=== PATIENT | female | born 1985 | race American Indian/Alaskan Native ===

== ENCOUNTER 2016-11-26 22:10 | Emergency (ER) | payer MEDICAID ==
[2016-11-26 23:33] LABS: Basophils % (Auto) 0.5 % (0.0-1.8); Eosinophils % (Auto) 0.3 % (0.0-4.3); Hematocrit 36.8 % (30.3-42.9); Hemoglobin 12.2 gm/dl (10.1-14.3); Mean Corpuscular HGB Conc 33 % (30-34); Mean Corpuscular Hemoglobin 30 pg (28-32); Mean Corpuscular Volume 89 fl (79-97); Platelet Count 248 K/mm3 (140-440); Red Blood Count 4.13 M/mm3 (3.65-5.03); Red Cell Distribution Width 14.7 % (13.2-15.2); White Blood Count 8.5 K/mm3 (4.5-11.0)
[2016-11-26 23:50] LABS: Anion Gap 17 mmol/L; Blood Urea Nitrogen 10 mg/dL (7-17); Calcium 9.4 mg/dL (8.4-10.2); Carbon Dioxide 28 mmol/L (22-30); Chloride 102.3 mmol/L (98-107); Glucose 137 mg/dL (65-100); Sodium 143 mmol/L (137-145)
[2016-11-27 05:00] LABS: Urine Drugs of Abuse Note Disclamer
[2016-11-27 05:23] LABS: Bacteria,Urine 1+ /HPF (Negative); Bilirubin,Urine NEG (Negative); Blood,Urine NEG (Negative); Ketones,Urine TR mg/dL (Negative); Leukocyte Esterase,Urine SM (Negative); Mucus,Urine 3+ /HPF; Nitrite,Urine NEG (Negative)
[2016-11-27] MEDS ORDERED: MACROBID PO ONE (05:40)
--- NOTE | 2016-11-27 06:09 | Emergency Department Report ---
ED Psych HPI - General Chief Complaint: Psych Stated Complaint: MH EVAL Time Seen by Provider: 11/27/16 02:39 Source: patient Mode of arrival: Ambulatory Limitations: Other - History of Present Illness Initial Comments: 31-year-old female with a past psychiatric history presents to the hospital by [facility] [employer] for disruptive behavior at [facility]. Patient was talking to herself upon arrival. She is calm and cooperative in the ED denies any physical complaints. No reports of suicidal homicidal ideation. Patient apparently resides at [facility] currently. - Related Data Previous Rx's Medication Instructions Recorded Last Taken Type Nitrofurantoin Don[place]han/M-Cryst 100 mg PO Q12HR #10 capsule 11/27/16 Unknown Rx [Macrobid CAP] Allergies Allergy/AdvReac Type Severity Reaction Status Date / Time No Known Allergies Allergy Unverified 03/24/15 11:21 ED Review of Systems ROS: Stated complaint: MH EVAL Other details as noted in HPI Comment: All other systems reviewed and negative Other: Constitutional: No fevers chills Eyes: No eye pain ENT: No ear pain Neck: Denies pain Respiratory: Denies cough wheezing shortness of breath Cardiovascular: Denies chest pain GI: Denies abdominal pain : Denies dysuria Musculoskeletal: Denies back pain Skin: Denies rash, lesions, erythema Neurologic: Denies headache, numbness, weakness Psychiatric: Denies suicidal ideation ED Past Medical Hx - Past Medical History Previous Medical History?: Yes Hx Psychiatric Treatment: Yes - Surgical History Past Surgical History?: No - Social History Smoking Status: Never Smoker Substance Use Type: None - Medications Home Medications: Home Medications Medication Instructions Recorded Confirmed Last Taken Type Nitrofurantoin Don[place]han/M-Cryst 100 mg PO Q12HR #10 capsule 11/27/16 Unknown Rx [Macrobid CAP] ED Physical Exam - General Limitations: No Limitations - Other Other exam information: General: No limitations, patient is alert in no acute distress Head exam: Atraumatic, normocephalic Eyes exam: Normal appearance ENT: Moist mucous membrane, normal oropharynx Neck exam: Normal inspection, full range of motion Respiratory exam: Clear to auscultation bilateral, no wheezes, rales, crackles Cardiovascular: Normal rate and rhythm, normal heart sounds Abdomen: Soft, nondistended, and nontender, with normal bowel sounds, no rebound, or guarding Extremity: Full range of motion normal inspection no deformity Back: Normal Inspection, full range of motion, no tenderness Neurologic: Alert, cranial nerves intact, no motor or sensory deficit Psychiatric: Normal affect, mumbling speech which appears to be chronic Skin: Warm, dry, intact ED Course Vital Signs 11/26/16 22:29 Temperature 98.0 F Pulse Rate 100 H Respiratory 16 Rate Blood Pressure 124/75 O2 Sat by Pulse 99 Oximetry - Reevaluation(s) Reevaluation #1: 11/27/16 06:09 Patient remained calm and cooperative. Macrobid given - Consultations Consultation #1: 11/27/16 Mental health evaluation ED Medical Decision Making - Lab Data Result diagrams: 11/26/16 23:12 11/26/16 23:12 Lab Results 11/26/16 11/26/16 11/26/16 Range/Units 23:12 23:12 23:12 WBC 8.5 (4.5-11.0) K/mm3 RBC 4.13 (3.65-5.03) M/mm3 Hgb 12.2 (10.1-14.3) gm/dl Hct 36.8 (30.3-42.9) % MCV 89 (79-97) fl MCH 30 (28-32) pg MCHC 33 (30-34) % RDW 14.7 (13.2-15.2) % Plt Count 248 (140-440) K/mm3 Lymph % (Auto) 30.6 (13.4-35.0) % Doniphan % (Auto) 14.0 H (0.0-7.3) % Eos % (Auto) 0.3 (0.0-4.3) % Baso % (Auto) 0.5 (0.0-1.8) % Lymph # 2.6 (1.2-5.4) K/mm3 Doniphan # 1.2 H (0.0-0.8) K/mm3 Eos # 0.0 (0.0-0.4) K/mm3 Baso # 0.0 (0.0-0.1) K/mm3 Seg Neutrophils % 54.6 (40.0-70.0) % Seg Neutrophils # 4.7 (1.8-7.7) K/mm3 Sodium 143 (137-145) mmol/L Potassium 4.0 (3.6-5.0) mmol/L Chloride 102.3 (98-107) mmol/L Carbon Dioxide 28 (22-30) mmol/L Anion Gap 17 mmol/L BUN 10 (7-17) mg/dL Creatinine 0.8 (0.7-1.2) mg/dL Estimated GFR > 60 ml/min BUN/Creatinine Ratio 12.50 % Glucose 137 H (65-100) mg/dL Calcium 9.4 (8.4-10.2) mg/dL Urine Color (Yellow) Urine Turbidity (Clear) Urine pH (5.0-7.0) Ur Specific Weldon (1.003-1.030) Urine Protein (Negative) mg/dL Urine Glucose (UA) (Negative) mg/dL Urine Ketones (Negative) mg/dL Urine Blood (Negative) Urine Nitrite (Negative) Urine Bilirubin (Negative) Urine Urobilinogen (<2.0) mg/dL Ur Leukocyte Esterase (Negative) Urine WBC (Auto) (0.0-6.0) /HPF Urine RBC (Auto) (0.0-6.0) /HPF U Epithel Cells (Auto) (0-13.0) /HPF Urine Bacteria (Auto) (Negative) /HPF Urine Mucus /HPF Urine HCG, Qual (Negative) Urine Opiates Screen Urine Methadone Screen Ur Barbiturates Screen Ur Phencyclidine Scrn Ur Amphetamines Screen U Benzodiazepines Scrn Urine Cocaine Screen U Marijuana (THC) Screen Drugs of Abuse Note Plasma/Serum Alcohol < 0.01 (0-0.07) gm% 11/27/16 11/27/16 Range/Units 04:51 04:51 WBC (4.5-11.0) K/mm3 RBC (3.65-5.03) M/mm3 Hgb (10.1-14.3) gm/dl Hct (30.3-42.9) % MCV (79-97) fl MCH (28-32) pg MCHC (30-34) % RDW (13.2-15.2) % Plt Count (140-440) K/mm3 Lymph % (Auto) (13.4-35.0) % Doniphan % (Auto) (0.0-7.3) % Eos % (Auto) (0.0-4.3) % Baso % (Auto) (0.0-1.8) % Lymph # (1.2-5.4) K/mm3 Doniphan # (0.0-0.8) K/mm3 Eos # (0.0-0.4) K/mm3 Baso # (0.0-0.1) K/mm3 Seg Neutrophils % (40.0-70.0) % Seg Neutrophils # (1.8-7.7) K/mm3 Sodium (137-145) mmol/L Potassium (3.6-5.0) mmol/L Chloride (98-107) mmol/L Carbon Dioxide (22-30) mmol/L Anion Gap mmol/L BUN (7-17) mg/dL Creatinine (0.7-1.2) mg/dL Estimated GFR ml/min BUN/Creatinine Ratio % Glucose (65-100) mg/dL Calcium (8.4-10.2) mg/dL Urine Color Yellow (Yellow) Urine Turbidity Cloudy (Clear) Urine pH 6.0 (5.0-7.0) Ur Specific Weldon 1.028 (1.003-1.030) Urine Protein 30 mg/dl (Negative) mg/dL Urine Glucose (UA) 50 (Negative) mg/dL Urine Ketones Tr (Negative) mg/dL Urine Blood Neg (Negative) Urine Nitrite Neg (Negative) Urine Bilirubin Neg (Negative) Urine Urobilinogen 2.0 (<2.0) mg/dL Ur Leukocyte Esterase Sm (Negative) Urine WBC (Auto) 13.0 H (0.0-6.0) /HPF Urine RBC (Auto) 2.0 (0.0-6.0) /HPF U Epithel Cells (Auto) 13.0 (0-13.0) /HPF Urine Bacteria (Auto) 1+ (Negative) /HPF Urine Mucus 3+ /HPF Urine HCG, Qual Negative (Negative) Urine Opiates Screen Presumptive negative Urine Methadone Screen Presumptive negative Ur Barbiturates Screen Presumptive negative Ur Phencyclidine Scrn Presumptive negative Ur Amphetamines Screen Presumptive negative U Benzodiazepines Scrn Presumptive negative Urine Cocaine Screen Presumptive negative U Marijuana (THC) Screen Presumptive negative Drugs of Abuse Note Disclamer Plasma/Serum Alcohol (0-0.07) gm% - Medical Decision Making Patient has mild your leukocytosis will be covered Macrobid. Patient does not meet 1013 criteria. She is currently residing at a psychiatric facility she will be discharged back to [facility]. Case was discussed with mental health plastic card grader cardroom. - Differential Diagnosis psychiatric disorder, chronic psychosis, infection Critical Care Time: No Critical care attestation.: If time is entered above; I have spent that time in minutes in the direct care of this critically ill patient, excluding procedure time. ED Disposition Clinical Impression: Mental health disorder, Urine WBC increased Disposition: DISCHARGED TO HOME OR SELFCARE Is pt being admited?: No Does the pt Need Aspirin: No Condition: Stable Instructions: Medical Clearance for Psychiatric Care (ED), Urinary Tract Infection in Women (ED) Prescriptions: Nitrofurantoin Doniphan/M-Cryst [Macrobid CAP] 100 mg PO Q12HR #10 capsule Referrals: PRIMARY CARE, [Primary Care Provider] - 3-5 Days Time of Disposition: 06:16
--- NOTE | 2016-11-27 18:35 | Consultation ---
History of Present Illness - Reason for Consult Consult date: 11/27/16 Reason for consult: Mental Health Evaluation - Chief Complaint Chief complaint: "I went to the store" - History of Present Psychiatric Illness 31-year-old female with a past psychiatric history presents to the hospital by [facility] [employer] for disruptive behavior at [facility]. During assessment, patient had to be redirected and presented with disorganized thoughts. He stated that she was 48 years old and her son is 45. Patient went on to say that she was to a friend name "Rufus." I am not sure if Rufus is a friend or her spouse. She was able to tell me she takes Depokate and Risperdal for Schizoaffective disorder. She was not able to tell me where she was located at the time or the president of the . She denied SI/HI's or AH's at this time. Medications and Allergies Allergies Allergy/AdvReac Type Severity Reaction Status Date / Time No Known Allergies Allergy Unverified 03/24/15 11:21 Home Medications Medication Instructions Recorded Confirmed Last Taken Type Nitrofurantoin Rincon/M-Cryst 100 mg PO Q12HR #10 capsule 11/27/16 Unknown Rx [Macrobid CAP] Past psychiatric history - Past Medical History Past Medical History: other (unable to obtain) Past Surgical History: Other (unable to obtain) - past Psychiatric treatment and history Psych: Bipolar, Schizophrenia (Live in a intermediate) psychiatric treatment history: Unable to obtain Mental Status Exam - Vital signs Last Vital Signs Temp 98.0 F 11/26/16 22:29 Pulse 82 11/27/16 09:43 Resp 16 11/27/16 09:43 BP 145/86 11/27/16 09:43 Pulse Ox 100 11/27/16 09:43 - Exam Narrative exam: ROS (+) Psychosis Orientation: person Affect: flat Mood: congruent with affect Thought content: delusions Thought Process: Tangential, Disoriented Perceptions: none Speech: incoherent Concentration: focused Motor activity: other (Sitting up) Level of consciousness: alert Memory: Recent Intact Sleep Symptoms: None (unable to obtain) Interaction: cooperative Results Result Diagrams: 11/26/16 23:12 11/26/16 23:12 Abnormal lab results 11/26/16 11/26/16 11/27/16 Range/Units 23:12 23:12 04:51 Rincon % (Auto) 14.0 H (0.0-7.3) % Rincon # 1.2 H (0.0-0.8) K/mm3 Glucose 137 H (65-100) mg/dL Urine WBC (Auto) 13.0 H (0.0-6.0) /HPF All other labs normal. Assessment and Plan Assessment and plan: Impression: Hx of Schizoaffective Disorder. Patient is disorganized with tangential thoughts. Recommendation: Possible placement to inpatient psychiatric services or [facility] once mentally stable. Collect collateral information to proper assess current situation. Start depakote 500 mg PO BID mood stabilizer and Risperdal 2 mg PO daily for psychosis. LFT's ordered.
[2016-11-27] MEDS: RisperDAL PO SCH (20:41)
[2016-11-27 20:51] LABS: Alanine Aminotransferase 8 units/L (7-56)
[2016-11-28] MEDS: RisperDAL PO SCH (11:37)
--- NOTE | 2016-11-28 16:11 | Progress Note ---
Subjective - Reason for Consult Consult date: 11/28/16 Reason for consult: psychosis and disorganized behaviors - Chief Complaint Chief complaint: On examination today, the patient continues to have disorganized speech. She continues to be nonlinear and her ability to recount the events that led to the hospitalization. She is unaware of where she is and why she is here at this hospital. She was very poor historian and remains paranoid. Mental Status Exam - Vital signs Last Vital Signs Temp 98.0 F 11/26/16 22:29 Pulse 92 H 11/28/16 01:30 Resp 18 11/28/16 12:28 BP 112/78 11/28/16 01:30 Pulse Ox 96 11/28/16 12:28 - Exam Orientation: time, person Affect: anxious Mood: fearful Thought content: obsessions, paranoia Thought Process: Disorganized Speech: incoherent Concentration: distractible Motor activity: restless Level of consciousness: alert Memory: Recent Impaired, Remote Impaired Sleep Symptoms: Insomnia, Restless Interaction: guarded, uncooperative Assessment and Plan Impression: Schizoaffective disorder Plan: Continue current dose of Depakote and plan on obtaining LFTs as well as amylase/ lipase levels Continue current dose of Risperdal with the plan to titrate further over the next 24 hours if patient's symptoms do not reduce Continue to pursue inpatient hospitalization treatment for this patient
[2016-11-28] MEDS ORDERED: RisperDAL PO SCH (20:00)
[2016-11-29] MEDS: RisperDAL PO SCH (11:14)
--- NOTE | 2016-11-29 14:38 | Progress Note ---
Subjective - Reason for Consult Consult date: 11/29/16 Reason for consult: psychiatry - Chief Complaint Chief complaint: The patient continues to have disorganized speech and is tangential. She is unaware of where she is and why she is here at this hospital. She was very poor historian and remains paranoid. She mentioned recently being at the [employer]. Mental Status Exam - Vital signs Last Vital Signs Temp 98.5 F 11/29/16 10:00 Pulse 100 H 11/29/16 10:00 Resp 18 11/29/16 12:18 BP 117/96 11/29/16 10:00 Pulse Ox 99 11/29/16 10:00 - Exam Orientation: place, person Affect: agitated Mood: congruent with affect Thought content: obsessions, paranoia Thought Process: Tangential, Disorganized Speech: pressured Concentration: unable to pay attention Motor activity: restless Level of consciousness: alert Sleep Symptoms: Sleepiness Interaction: cooperative (attempts to be cooperative but disorganized) Assessment and Plan Impression: Schizoaffective disorder Plan: Continue current dose of Depakote. LFTs done and within normal limits. Increase Risperdal for ongoing psychotic symptoms. She will receive Risperdal 1 mg at bedtime since she has received 2 mg this morning. If she remains in the emergency department tomorrow and has not been transported to an inpatient psychiatric facility, she will receive Risperdal 3 mg at bedtime for psychotic symptoms Continue to pursue inpatient hospitalization treatment for this patient - Patient Problems (1) Schizoaffective disorder Current Visit: Yes Status: Acute Qualifiers: Schizoaffective disorder type: S
[2016-11-29] MEDS ORDERED: RisperDAL PO SCH (22:00)
--- NOTE | 2016-11-30 16:07 | Progress Note ---
Subjective - Reason for Consult Reason for consult: psych consult - Chief Complaint Chief complaint: 31 year old BF with history of scpt presented to [facility] after disorganized behavior in a store. Patient remains disorganized- noting that she wants to leave but can't provide a proper dispo plan. She denies any SI/HI/ AH/VH but was responding to internal stimuli when she didn't seem to notice I was watching her. She notes that she's tolerating the medication and denies issues with sleep or appetite. Remains delusions- for example saying her son is 1 year younger than her. Mental Status Exam - Vital signs Last Vital Signs Temp 97.7 F 11/30/16 07:55 Pulse 94 H 11/30/16 07:55 Resp 16 11/30/16 07:57 BP 130/74 11/30/16 07:55 Pulse Ox 100 11/30/16 07:57 - Exam Orientation: person Affect: normal Mood: appropriate Thought content: delusions Thought Process: Disorganized Perceptions: auditory Speech: normal rate and pattern Concentration: distractible Motor activity: normal Level of consciousness: alert Memory: Intact Interaction: cooperative Assessment and Plan 31 year old BF with history of scpt presented to [facility] after disorganized behavior in a store. Patient condition hasn't changed much while her- her delusions and disorganized behaviors inhibit her from being able to care for self at this time. She still requires an inpt setting and to work on dispo options. psychosis: continue treatment with risperdal while transfer options to inpt care are explored.
[2016-11-30] MEDS: RisperDAL PO SCH (21:34)
--- NOTE | 2016-12-01 09:59 | Progress Note ---
Subjective - Reason for Consult Consult date: 12/01/16 Reason for consult: Psychiatry Follow-up - Chief Complaint Chief complaint: 31 year old BF with history of scpt presented to [facility] after disorganized behavior in a store. Today patient presents delusional with disorganized thoughts. She stated that she's currently at [facility], but did state that she resides at [facility]. She could not elaborate on the incident at [facility] when asked, she just laughed out loud. She denied side effects of current psy medications. She also denies any SI/HI/AH/VH. Mental Status Exam - Vital signs Last Vital Signs Temp 97.9 F 12/01/16 08:08 Pulse 80 12/01/16 08:08 Resp 16 12/01/16 08:09 BP 117/74 12/01/16 08:08 Pulse Ox 100 12/01/16 08:09 - Exam Orientation: person Affect: other (Restricted) Mood: euphoric Thought content: delusions Thought Process: Circumstantial Perceptions: none Speech: slow Concentration: distractible Motor activity: other (Sitting up in bed) Level of consciousness: alert Memory: Remote Impaired Interaction: cooperative Assessment and Plan Impression: 31 year old BF with history of scpt presented to [facility] after disorganized behavior in a [employer] store. Patient still presents with delusional and disorganized thoughts. This behavior inhibit her from being able to care for self at this time. Recommendation/Plan: Continue treatment with Depakote and Risperdal while transfer options to in care are explored. [facility] ordered.
--- NOTE | 2016-12-01 14:46 | Event Note ---
Date: 12/01/16 Vital signs are reviewed and appreciated. Psychiatric consultation is appreciated. Patient is awaiting psychiatric placement Vital Signs 11/26/16 11/27/16 11/28/16 22:29 09:43 01:30 Temperature 98.0 F Pulse Rate 100 H 82 92 H Respiratory 16 16 20 Rate Blood Pressure 124/75 Blood Pressure 145/86 112/78 [Right] O2 Sat by Pulse 99 100 99 Oximetry 11/28/16 11/28/16 11/28/16 01:53 12:28 14:00 Temperature 97.8 F Pulse Rate 74 Respiratory 20 18 18 Rate Blood Pressure Blood Pressure 126/74 [Right] O2 Sat by Pulse 96 96 99 Oximetry 11/28/16 11/29/16 11/29/16 22:00 10:00 12:18 Temperature 97.6 F 98.5 F Pulse Rate 85 100 H Respiratory 16 18 18 Rate Blood Pressure Blood Pressure 131/80 117/96 [Right] O2 Sat by Pulse 98 99 Oximetry 11/29/16 11/30/16 11/30/16 22:00 07:55 07:57 Temperature 98.4 F 97.7 F Pulse Rate 86 94 H Respiratory 18 16 16 Rate Blood Pressure Blood Pressure 106/54 130/74 [Right] O2 Sat by Pulse 99 100 100 Oximetry 11/30/16 12/01/16 12/01/16 20:38 08:08 08:09 Temperature 98.7 F 97.9 F Pulse Rate 98 H 80 Respiratory 18 16 16 Rate Blood Pressure Blood Pressure 129/84 117/74 [Right] O2 Sat by Pulse 100 100 100 Oximetry
[2016-12-01] MEDS: RisperDAL PO SCH (22:59)
--- NOTE | 2016-12-02 10:24 | Progress Note ---
Subjective - Reason for Consult Consult date: 12/02/16 Reason for consult: Psychiatry Follow-up - Chief Complaint Chief complaint: 31 year old BF with history of scpt presented to [facility] after disorganized behavior in a store. Today patient presents delusional with disorganized thoughts as she did yesterday. Her assigned RN observed patient talking to herself in her room this morning. She stated to me that the president is still Jose not Graciela. She stated that she is located at [facility] and not [facility]. She is adamant about living at [facility]. This is a new m[facility] she is mentioning now. She denies SI/HI's or AVH's at this time. She denies side effects of current psy medications. She also denies any SI/HI/AH/VH. Mental Status Exam - Vital signs Last Vital Signs Temp 97.6 F 12/02/16 07:20 Pulse 86 12/02/16 07:20 Resp 18 12/02/16 07:20 BP 113/75 12/02/16 07:20 Pulse Ox 98 12/02/16 07:20 - Exam Orientation: person Affect: other (Flat) Mood: congruent with affect Thought content: delusions Thought Process: Circumstantial Perceptions: none Speech: normal rate and pattern Concentration: focused Motor activity: other (Sitting up in bed) Level of consciousness: confused Memory: Intact Sleep Symptoms: None Interaction: cooperative Assessment and Plan Impression: 31 year old BF with history of Schizoaffective Disorder presented to [facility] after disorganized behavior in a [employer] store. Patient still presents with delusional and disorganized thoughts. This behavior inhibit her from being able to care for self at this time. AM lab of [facility] 86.8. Recommendation/Plan: Continue 1013 and treatment with Depakote and Risperdal while [facility] to [facility] are explored.
[2016-12-02] MEDS: MACROBID PO SCH ×2 (13:00→23:09)
[2016-12-02] MEDS: RisperDAL PO SCH (23:09)
[2016-12-03] MEDS: MACROBID PO SCH ×2 (10:20→22:27)
--- NOTE | 2016-12-03 19:14 | Progress Note ---
Subjective - Reason for Consult Reason for consult: psych consult - Chief Complaint Chief complaint: 31 year old BF with history of scpt presented to [facility] after disorganized behavior in a store. Patient with no significant changes. While her delusional thoughts still remains, in the hospital they have not led to any acute risk of harm. She still feels she's 46 yo. She denies any SI/HI/AH/VH though. She's sitting in bed without any complaints. Mental Status Exam - Vital signs Last Vital Signs Temp 97.7 F 12/03/16 08:43 Pulse 84 12/03/16 08:43 Resp 13 12/03/16 08:43 BP 104/78 12/03/16 08:43 Pulse Ox 100 12/03/16 08:43 - Exam Orientation: place, person Mood: appropriate Thought content: delusions Thought Process: Disorganized Perceptions: none Speech: normal rate and pattern Concentration: distractible Motor activity: normal Level of consciousness: alert Memory: Intact Interaction: cooperative Assessment and Plan 31 year old BF with history of scpt presented to [facility] after disorganized behavior in a store. Patient condition hasn't changed much while her- her delusions and disorganized behaviors inhibit her from being able to care for self at this time. She can function though in a supervised setting such as a PCN. psychosis: continue treatment with risperdal while transfer options to in care are explored. Can look at a personal skilled nursing as a dispo option with the patient currently not being a risk of harm to self or others.
--- NOTE | 2016-12-03 19:42 | Emergency Department Report ---
Blank Doc - Documentation Documentation: I initially received report for mobile crisis team that patient can be sent home and that 1013 rescinded due to lack of suicidal ideation and chronic schizophrenia. Dr. Hendricks psychiatrist evaluated patient and wrote a note that patient needs inpatient treatment. I was in the impression that the 1013 B rescinded. I spoke to mental health assessment at this time and requested that we have clarification of patient's disposition planning and need for 1013.
[2016-12-03 19:43] VITALS: BP 119/74
--- NOTE | 2016-12-03 20:23 | Emergency Department Report ---
HPI - General Chief Complaint: Psych Time Seen by Provider: 11/27/16 02:39 ED Past Medical Hx - Past Medical History Previous Medical History?: Yes Hx Psychiatric Treatment: Yes - Surgical History Past Surgical History?: No - Social History Smoking Status: Never Smoker Substance Use Type: None - Medications Home Medications: Home Medications Medication Instructions Recorded Confirmed Last Taken Type Nitrofurantoin [place]/M-Cryst 100 mg PO Q12HR #10 capsule 11/27/16 Unknown Rx [Macrobid CAP] ED Review of Systems ROS: Stated complaint: MH EVAL Other details as noted in HPI Physical Exam - Physical Exam Vital Signs: Vital Signs 11/26/16 11/27/16 11/28/16 22:29 09:43 01:30 Temperature 98.0 F Pulse Rate 100 H 82 92 H Respiratory 16 16 20 Rate Blood Pressure 124/75 Blood Pressure 145/86 112/78 [Right] O2 Sat by Pulse 99 100 99 Oximetry 11/28/16 11/28/16 11/28/16 01:53 12:28 14:00 Temperature 97.8 F Pulse Rate 74 Respiratory 20 18 18 Rate Blood Pressure Blood Pressure 126/74 [Right] O2 Sat by Pulse 96 96 99 Oximetry 11/28/16 11/29/16 11/29/16 22:00 10:00 12:18 Temperature 97.6 F 98.5 F Pulse Rate 85 100 H Respiratory 16 18 18 Rate Blood Pressure Blood Pressure 131/80 117/96 [Right] O2 Sat by Pulse 98 99 Oximetry 11/29/16 11/30/16 11/30/16 22:00 07:55 07:57 Temperature 98.4 F 97.7 F Pulse Rate 86 94 H Respiratory 18 16 16 Rate Blood Pressure Blood Pressure 106/54 130/74 [Right] O2 Sat by Pulse 99 100 100 Oximetry 11/30/16 12/01/16 12/01/16 20:38 08:08 08:09 Temperature 98.7 F 97.9 F Pulse Rate 98 H 80 Respiratory 18 16 16 Rate Blood Pressure Blood Pressure 129/84 117/74 [Right] O2 Sat by Pulse 100 100 100 Oximetry 12/01/16 12/01/16 12/02/16 19:24 21:31 07:20 Temperature 97.6 F 97.6 F Pulse Rate 91 H 86 Respiratory 18 20 18 Rate Blood Pressure Blood Pressure 149/98 113/75 [Right] O2 Sat by Pulse 100 98 Oximetry 12/02/16 12/02/16 12/03/16 20:34 20:37 08:43 Temperature 98.4 F 97.7 F Pulse Rate 80 84 Respiratory 19 19 12 Rate Blood Pressure Blood Pressure 124/80 104/78 [Right] O2 Sat by Pulse 98 98 100 Oximetry 12/03/16 12/03/16 12/03/16 19:19 19:42 20:02 Temperature 98.5 F 98.5 F Pulse Rate 84 84 Respiratory 20 20 20 Rate Blood Pressure Blood Pressure 119/74 119/74 [Right] O2 Sat by Pulse 95 95 Oximetry ED Course Vital Signs 11/26/16 11/27/16 11/28/16 22:29 09:43 01:30 Temperature 98.0 F Pulse Rate 100 H 82 92 H Respiratory 16 16 20 Rate Blood Pressure 124/75 Blood Pressure 145/86 112/78 [Right] O2 Sat by Pulse 99 100 99 Oximetry 11/28/16 11/28/16 11/28/16 01:53 12:28 14:00 Temperature 97.8 F Pulse Rate 74 Respiratory 20 18 18 Rate Blood Pressure Blood Pressure 126/74 [Right] O2 Sat by Pulse 96 96 99 Oximetry 11/28/16 11/29/16 11/29/16 22:00 10:00 12:18 Temperature 97.6 F 98.5 F Pulse Rate 85 100 H Respiratory 16 18 18 Rate Blood Pressure Blood Pressure 131/80 117/96 [Right] O2 Sat by Pulse 98 99 Oximetry 11/29/16 11/30/16 11/30/16 22:00 07:55 07:57 Temperature 98.4 F 97.7 F Pulse Rate 86 94 H Respiratory 18 16 16 Rate Blood Pressure Blood Pressure 106/54 130/74 [Right] O2 Sat by Pulse 99 100 100 Oximetry 11/30/16 12/01/16 12/01/16 20:38 08:08 08:09 Temperature 98.7 F 97.9 F Pulse Rate 98 H 80 Respiratory 18 16 16 Rate Blood Pressure Blood Pressure 129/84 117/74 [Right] O2 Sat by Pulse 100 100 100 Oximetry 12/01/16 12/01/16 12/02/16 19:24 21:31 07:20 Temperature 97.6 F 97.6 F Pulse Rate 91 H 86 Respiratory 18 20 18 Rate Blood Pressure Blood Pressure 149/98 113/75 [Right] O2 Sat by Pulse 100 98 Oximetry 12/02/16 12/02/16 12/03/16 20:34 20:37 08:43 Temperature 98.4 F 97.7 F Pulse Rate 80 84 Respiratory 19 19 12 Rate Blood Pressure Blood Pressure 124/80 104/78 [Right] O2 Sat by Pulse 98 98 100 Oximetry 12/03/16 12/03/16 12/03/16 19:19 19:42 20:02 Temperature 98.5 F 98.5 F Pulse Rate 84 84 Respiratory 20 20 20 Rate Blood Pressure Blood Pressure 119/74 119/74 [Right] O2 Sat by Pulse 95 95 Oximetry - Reevaluation(s) Reevaluation #1: 12/03/16 20:22 I did get a call from the powder worker indicating that 1013 was going to be rescinded by the psychiatrist and psychiatrist requested the [facility]. This housing facility does appear to provide the appropriate amount of support for the patient to allow her to be able to function well. I feel she'll do well in this position. She has been appropriate for us today. She has been compliant with her medications. I have encouraged her to continue to be compliant with her medications at home. ED Medical Decision Making - Lab Data Result diagrams: 11/26/16 23:12 11/26/16 23:12 Critical care attestation.: If time is entered above; I have spent that time in minutes in the direct care of this critically ill patient, excluding procedure time. ED Disposition Clinical Impression: Schizoaffective disorder Qualifiers: Schizoaffective disorder type: unspecified Qualified Code(s): F25.9 - Schizoaffective disorder, unspecified Disposition: DISCHARGED TO HOME OR SELFCARE Is pt being admited?: No Does the pt Need Aspirin: No Condition: Stable Instructions: Urinary Tract Infection in Women (ED), Medical Clearance for Psychiatric Care (ED) Additional Instructions: Follow with the resources provided to you by powder worker. Follow with your psychiatrist. Take your medications as prescribed. Return if any concerning thoughs or issues. Take your medications as prescribed. Prescriptions: Nitrofurantoin Corson/M-Cryst [Macrobid CAP] 100 mg PO Q12HR #10 capsule Referrals: PRIMARY CARE, [Primary Care Provider] - 3-5 Days Time of Disposition: 20:22
[2016-12-03] MEDS: RisperDAL PO SCH (22:27)
== END 2016-12-03 23:17 | disposition home or self-care (01) ==
LOC: ED 22:10 → EEVIPCON 22:10 → ED 12-03 23:17
DX: F99 Mental disorder, not otherwise specified (principal); R82.99 Other abnormal findings in urine
CPT/HCPCS: 36415; 80048; 80164; 80307; 81001; 81025; 84450; 84460; 85025; 99284; G0480; 80320

== ENCOUNTER 2016-12-04 18:59 | Emergency (ER) | payer MEDICAID ==
--- NOTE | 2016-12-04 21:55 | Emergency Department Report ---
HPI - General Chief Complaint: Neck Pain/Injury Time Seen by Provider: 12/04/16 21:39 - HPI HPI: Patient is a 31-year-old male with a history of bipolar and schizophrenia disorder on meds who presents to the ED complaining of neck pain. Patient is a poor historian and mumbles a lot. Patient states she fell out of her bed at the [facility] yesterday night around 8 PM. Patient points to the right lateral neck as point of pain. Patient does states she takes her medication daily. Patient denies fever/chills/nausea/vomiting/abdominal pain/dizziness/headache/ chest pain or shortness of breath. ED Past Medical Hx - Past Medical History Previous Medical History?: Yes Hx Psychiatric Treatment: Yes (Schizophrenia, BiPolar) - Surgical History Past Surgical History?: No Hx Open Heart Surgery: No Additional Surgical History: Pt Denies - Social History Smoking Status: Never Smoker Substance Use Type: None - Medications Home Medications: Home Medications Medication Instructions Recorded Confirmed Last Taken Type Nitrofurantoin [place]/M-Cryst 100 mg PO Q12HR #10 capsule 11/27/16 12/03/16 Rx [Macrobid CAP] Ibuprofen [Motrin 800 MG tab] 800 mg PO Q8H #30 tablet 12/04/16 Unknown Rx ED Review of Systems ROS: Stated complaint: HEAD AND NECK PAIN Other details as noted in HPI Constitutional: denies: chills, fever Eyes: denies: eye pain, eye discharge, vision change ENT: denies: ear pain, throat pain Respiratory: denies: cough, shortness of breath, SOB at rest, wheezing Cardiovascular: denies: chest pain, palpitations Endocrine: no symptoms reported Gastrointestinal: denies: abdominal pain, nausea, diarrhea, melena Genitourinary: denies: urgency, dysuria, frequency, hematuria, discharge, abnormal menses Musculoskeletal: denies: back pain, joint swelling, arthralgia Skin: denies: rash, lesions Neurological: denies: headache, weakness, paresthesias Psychiatric: denies: anxiety, depression Hematological/Lymphatic: denies: easy bleeding, easy bruising Physical Exam - Physical Exam Vital Signs: Vital Signs 12/04/16 19:39 Temperature 98.5 F Pulse Rate 95 H Respiratory 18 Rate Blood Pressure 147/86 [Right] O2 Sat by Pulse 100 Oximetry Physical Exam: GENERAL: Alert and oriented x3, no apparent distress, Normal Gait, atraumatic. Ambulating properly, no stumbling HEAD: Head is normocephalic and a-traumatic. EYES: Extra ocular muscles are intact. Pupils are equal, round, and reactive to light and accommodation. MOUTH:Mouth is well hydrated and without lesions. Tonsils nonerythematous or swollen, Uvula midline, Tongue not elevated. Mucous membranes are moist. Posterior pharynx clear, no exudate or lesions. Patent airways. NECK: Supple. Non edematous, No carotid bruits. No lymphadenopathy or thyromegaly. Moderate C-spine tenderness. Full range of motion of the neck. LUNGS: Symetrical with respiration, No wheezing, no rales or crackles, CTAB. HEART: S1, S2 present, regular rate and rhythm without murmur, no rubs, no gallops. ABDOMEN: No organomegaly was noted,Positive bowel sounds, soft, and non- distended. . Nontender to palpation on all Quadrants, NO CVA tenderness. EXTREMITIES/MUSCULOSKELETAL: No cyanosis, clubbing, rash, lesions or edema. Full ROM bilaterally. UE/LE Pulses 2+ bilaterally. LE and UE 5+ strength bilaterally NEUROLOGIC: No focal Deficit, Cranial nerves II through XII are grossly intact. No loss of sensation, patient able to follow instructions. PSYCHIATRIC: Mood is congruent with affect, denies suicidal or homicidal ideations. SKIN: Warm and dry, No lesions, No ulceration or induration present. ED Course Vital Signs 12/04/16 19:39 Temperature 98.5 F Pulse Rate 95 H Respiratory 18 Rate Blood Pressure 147/86 [Right] O2 Sat by Pulse 100 Oximetry ED Medical Decision Making - Lab Data Result diagrams: 12/04/16 21:43 12/04/16 21:43 - Radiology Data Radiology results: report reviewed, image reviewed FINAL REPORT PROCEDURE: CT HEAD/BRAIN WO CON TECHNIQUE: Computerized tomography of the head was performed without contrast material. HISTORY: fall, head pain COMPARISON: No prior studies are available for comparison. FINDINGS: Skull and scalp: Normal. Paranasal sinuses: Normal. Ventricles and subarachnoid spaces: Normal. Cerebrum: No evidence of hemorrhage, acute infarction or mass . Cerebellum and brainstem: No evidence of hemorrhage, acute infarction or mass. Vasculature: Normal. Comments: None. IMPRESSION: Normal Examination Transcribed By: [facility] Dictated By: MIKKI CHAVEZ MD Electronically Authenticated By: MIKKI CHAVEZ MD Signed Date/Time: 12/04/16 2311 - Medical Decision Making 31-year-old female presents status post fall ED course: CT head and C-spine is ordered. CBC, BMP, UA, test, urine drug screen all ordered. CBC, BMP within normal limits. test negative. Urine tox screen negative for alcohol. CT scan shows: See above Discussed with patient need to follow-up with her primary care physician. Discussed patient patient with going back to her Apartment. Discussed with patient finding are all normal. Vital signs are normal. Patient is in no acute or respiratory distress. Critical care attestation.: If time is entered above; I have spent that time in minutes in the direct care of this critically ill patient, excluding procedure time. ED Disposition Clinical Impression: Fall Qualifiers: Encounter type: initial encounter Qualified Code(s): W19.XXXA - Unspecified fall, initial encounter Disposition: DISCHARGED TO HOME OR SELFCARE Is pt being admited?: No Does the pt Need Aspirin: No Condition: Stable Instructions: Muscle Strain (ED), Fall Prevention (ED) Additional Instructions: Apply heat to affected area. Follow-up which her primary care physician. Prescriptions: Ibuprofen [Motrin 800 MG tab] 800 mg PO Q8H #30 tablet Referrals: ZANE ALONZO MD [Primary Care Provider] - 3-5 Days ADAMS DIAZ MD [Referring] - 3-5 Days [facility] [Outside] - 3-5 Days [facility] [Outside[facility] - 3-5 Days [facility] [Outside] - 3-5 Days Forms: Work/School Release Form(ED) Time of Disposition: 22:58
[2016-12-04 22:00] LABS: Basophils % (Auto) 0.4 % (0.0-1.8); Eosinophils % (Auto) 0.2 % (0.0-4.3); Hematocrit 39.2 % (30.3-42.9); Hemoglobin 12.7 gm/dl (10.1-14.3); Mean Corpuscular HGB Conc 32 % (30-34); Mean Corpuscular Hemoglobin 29 pg (28-32); Mean Corpuscular Volume 89 fl (79-97); Platelet Count 207 K/mm3 (140-440); Red Cell Distribution Width 15.1 % (13.2-15.2); White Blood Count 7.3 K/mm3 (4.5-11.0)
[2016-12-04 22:15] LABS: Anion Gap 13 mmol/L; BUN/Creatinine Ratio 13.75; Blood Urea Nitrogen 11 mg/dL (7-17); Calcium 9.5 mg/dL (8.4-10.2); Carbon Dioxide 28 mmol/L (22-30); Chloride 100.7 mmol/L (98-107); Glucose 89 mg/dL (65-100); Potassium 4.4 mmol/L (3.6-5.0); Sodium 137 mmol/L (137-145)
[2016-12-04] MEDS ORDERED: MOTRIN PO ONE (22:55)
[2016-12-04 23:03] LABS: Urine Drugs of Abuse Note Disclamer
--- NOTE | 2016-12-04 23:14 | Cat Scan Report ---
FINAL REPORT PROCEDURE: CT HEAD/BRAIN WO CON TECHNIQUE: Computerized tomography of the head was performed without contrast material. HISTORY: fall, head pain COMPARISON: No prior studies are available for comparison. FINDINGS: Skull and scalp: Normal. Paranasal sinuses: Normal. Ventricles and subarachnoid spaces: Normal. Cerebrum: No evidence of hemorrhage, acute infarction or mass . Cerebellum and brainstem: No evidence of hemorrhage, acute infarction or mass. Vasculature: Normal. Comments: None. IMPRESSION: Normal Examination
[2016-12-04 23:15] LABS: Bilirubin,Urine NEG (Negative); Blood,Urine NEG (Negative); Ketones,Urine TR mg/dL (Negative); Leukocyte Esterase,Urine TR (Negative); Mucus,Urine 2+ /HPF; Nitrite,Urine NEG (Negative)
--- NOTE | 2016-12-04 23:17 | Cat Scan Report ---
FINAL REPORT PROCEDURE: CT CERVICAL SPINE WO CON TECHNIQUE: Computerized tomography of the cervical spine was performed from the skull base to T1 without contrast material. HISTORY: fall, neck pain COMPARISON: No prior studies are available for comparison. FINDINGS: The alignment of the vertebral bodies is normal. The heights of the vertebral bodies and the disc spaces are maintained. No acute fracture or dislocation of the cervical spine. The spinal canal is adequate at all levels. The visualized portion of the airway is patent. IMPRESSION: There is no evidence of an acute fracture or dislocation of the cervical spine..
[2016-12-05 00:29] VITALS: BP 135/81
== END 2016-12-05 00:31 | disposition home or self-care (01) ==
LOC: ED 18:59
DX: M54.2 Cervicalgia (principal); F31.9 Bipolar disorder, unspecified; F20.9 Schizophrenia, unspecified; W19.XXXA Unspecified fall, initial encounter; Y93.89 Activity, other specified; Y99.8 Other external cause status; Y92.032 Bedroom in apartment as the place of occurrence of the external cause
CPT/HCPCS: 36415; 70450; 72125; 80048; 80307; 81001; 84703; 85025; 99284; G0480; 80320

== ENCOUNTER 2016-12-06 15:53 | Emergency (ER) | payer MEDICAID ==
[2016-12-06 16:23] VITALS: BP 122/70
== END 2016-12-06 20:04 | disposition left against medical advice (07) ==
LOC: ED 15:53
DX: R55 Syncope and collapse (principal); Z53.21 Procedure and treatment not carried out due to patient leaving prior to being seen by health care provider

== ENCOUNTER 2016-12-21 22:06 | Emergency (ER) | payer MEDICAID ==
[2016-12-21 23:04] VITALS: BP 132/79
--- NOTE | 2016-12-25 18:41 | ED Elopement Review ---
ED Pt Elopement review - Call Back decision Pt Call Back Decision: Pt to F/U with PMD
== END 2016-12-22 00:30 | disposition left against medical advice (07) ==
LOC: EEVIPCON 22:06 → ED 22:06
DX: R51 Headache (principal); Z53.21 Procedure and treatment not carried out due to patient leaving prior to being seen by health care provider

== ENCOUNTER 2016-12-24 23:37 | Emergency (ER) | payer MEDICAID ==
[2016-12-25 00:28] VITALS: BP 133/92
[2016-12-25 01:03] LABS: Basophils % (Auto) 0.7 % (0.0-1.8); Eosinophils % (Auto) 0.5 % (0.0-4.3); Hematocrit 41.1 % (30.3-42.9); Hemoglobin 13.4 gm/dl (10.1-14.3); Mean Corpuscular HGB Conc 33 % (30-34); Mean Corpuscular Hemoglobin 29 pg (28-32); Mean Corpuscular Volume 88 fl (79-97); Platelet Count 298 K/mm3 (140-440); Red Blood Count 4.65 M/mm3 (3.65-5.03)
[2016-12-25 01:24] LABS: Anion Gap 16 mmol/L; BUN/Creatinine Ratio 11.42; Blood Urea Nitrogen 8 mg/dL (7-17); Calcium 9.4 mg/dL (8.4-10.2); Carbon Dioxide 27 mmol/L (22-30); Chloride 98.6 mmol/L (98-107); Glucose 85 mg/dL (65-100); Potassium 3.7 mmol/L (3.6-5.0); Sodium 138 mmol/L (137-145)
[2016-12-25 03:20] LABS: Urine Drugs of Abuse Note Disclamer
[2016-12-25 03:32] LABS: Bilirubin,Urine NEG (Negative); Blood,Urine NEG (Negative); Ketones,Urine TR mg/dL (Negative); Leukocyte Esterase,Urine MOD (Negative); Mucus,Urine FEW /HPF; Nitrite,Urine NEG (Negative); Protein,Urine <15 mg/dL mg/dL (Negative); Urobilinogen,Urine < 2.0 mg/dL (<2.0)
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
== END 2016-12-25 06:17 | disposition home or self-care (01) ==
LOC: ED 23:37 → EEVIPCON 23:37 → ED 12-25 06:17
DX: F39 Unspecified mood [affective] disorder (principal); F31.9 Bipolar disorder, unspecified; F20.9 Schizophrenia, unspecified
CPT/HCPCS: 36415; 80048; 80164; 80307; 81001; 81025; 85025; 99284; G0480; 80320

== ENCOUNTER 2016-12-25 21:45 | Emergency (ER) | payer MEDICAID ==
[2016-12-25 23:23] LABS: Basophils % (Auto) 0.9 % (0.0-1.8); Eosinophils % (Auto) 0.8 % (0.0-4.3); Hematocrit 38.7 % (30.3-42.9); Hemoglobin 12.5 gm/dl (10.1-14.3); Mean Corpuscular HGB Conc 32 % (30-34); Mean Corpuscular Hemoglobin 29 pg (28-32); Mean Corpuscular Volume 89 fl (79-97); Platelet Count 304 K/mm3 (140-440); Red Blood Count 4.34 M/mm3 (3.65-5.03); Red Cell Distribution Width 15.1 % (13.2-15.2); White Blood Count 9.3 K/mm3 (4.5-11.0)
[2016-12-25 23:27] LABS: Anion Gap 18 mmol/L; BUN/Creatinine Ratio 8.75; Blood Urea Nitrogen 7 mg/dL (7-17); Calcium 9.4 mg/dL (8.4-10.2); Carbon Dioxide 25 mmol/L (22-30); Chloride 99.8 mmol/L (98-107); Glucose 91 mg/dL (65-100); Potassium 3.9 mmol/L (3.6-5.0); Sodium 139 mmol/L (137-145)
[2016-12-26 02:17] LABS: Urine Drugs of Abuse Note Disclamer
[2016-12-26 02:43] LABS: Bilirubin,Urine NEG (Negative); Blood,Urine NEG (Negative); Ketones,Urine TR mg/dL (Negative); Leukocyte Esterase,Urine LG (Negative); Mucus,Urine 3+ /HPF; Nitrite,Urine NEG (Negative); Urobilinogen,Urine < 2.0 mg/dL (<2.0)
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
[2016-12-26 07:26] LABS: Alanine Aminotransferase 8 units/L (7-56); Albumin 3.2 g/dL (3.9-5); Albumin/Globulin Ratio 0.9 %; Alkaline Phosphatase 55 units/L (35-129); Bilirubin,Total 0.3 mg/dL (0.1-1.2); Total Protein 6.8 g/dL (6.3-8.2)
[2016-12-26] MEDS ORDERED: ROCEPHIN IM ONE (07:53)
[2016-12-26] MEDS ORDERED: XYLOCAINE 1% MPF 5 mL INFILTRATI ONE (07:53)
[2016-12-26] MEDS ORDERED: ZITHROMAX PO ONE (07:53)
[2016-12-26 08:08] LABS: Salicylate < 0.3 mg/dL (2.8-20.0); Valproate < 2.8 ug/mL (50-100)
[2016-12-26 08:09] LABS: Bilirubin,Direct < 0.2 mg/dL (0-0.2)
--- NOTE | 2016-12-26 08:19 | Cat Scan Report ---
CT HEAD WITHOUT CONTRAST INDICATION: Altered mental status. COMPARISON: 12/04/2016. FINDINGS: Noncontrast head CT demonstrates stable ventricles and sulci without acute or recent infarct, hemorrhage, mass effect or midline shift. No abnormal extra-axial fluid collections. Posterior fossa structures and basilar cisterns appear within normal limits. Minimal sphenoid sinusitis. Clear remainder imaged paranasal sinuses and mastoid air cells. Nasal septal deviation partially imaged. Intact calvarium. Stable high left scalp benign calcifications as measuring up to 8 mm, axial series 3, image 53. CONCLUSION: No acute intracranial CT abnormality, as described. Please also correlate clinically. Thank you for the opportunity to participate in this patient's care.
[2016-12-26] MEDS ORDERED: ROCEPHIN ONE (10:53)
[2016-12-26] MEDS ORDERED: XYLOCAINE 1% MPF 5 mL ONE (10:54)
[2016-12-26] MEDS ORDERED: ZITHROMAX ONE (10:54)
[2016-12-26] MEDS: MACROBID PO SCH ×2 (11:16→23:13)
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
[2016-12-27] MEDS: MACROBID PO SCH ×2 (10:00→21:52)
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
[2016-12-28] MEDS: MACROBID PO SCH ×2 (10:01→23:21)
--- NOTE | 2016-12-28 10:49 | Progress Note ---
Subjective - Reason for Consult Consult date: 12/28/16 Reason for consult: Psychiatry Follow-up - Chief Complaint Chief complaint: "Why are you here" 31 year old black female seen in the ER for psychiatric evaluation. This is her 6th visit to the ER within less than one month. She was discharged from inpatient care at [facility] 12/24. Today patient is irritable, but cooperative with a tangential thought process. She stated that she is located currently at "[place]. " She stated that she still resides at [facility]. She stated that she was born in 1999. Her is 1985. She denies SI/HI's and AVH's. She would not tell me if she was depressed or experiencing sleep disturbance. Mental Status Exam - Vital signs Last Vital Signs Temp 97.5 F L 12/28/16 08:12 Pulse 16 L 12/28/16 08:12 Resp 16 12/28/16 08:12 BP 104/45 12/28/16 08:12 Pulse Ox 100 12/28/16 08:12 - Exam Narrative exam: MSE: Appearance: irritable Behavior: poor eye contact Speech: regular rate and tone Mood: "Why" Affect: flat Thought Process: tangential Thought Content: denies SI/HI's and AVH's Motor Activity: ambulatory Cognition: A/Ox3 Insight: poor Judgment: poor Assessment and Plan Impression: 31 year old black female seen in the ER for psychiatric evaluation. This is her 6th visit to the ER within less than one month. She was discharged from inpatient care at [facility] 12/24. Today patient is irritable, but cooperative with a tangential thought process. She denies SI/HI's and AVH's. Recommendation/Plan: Continue 1013 and transfer to inpatient psychiatric facility. Start Risperdal 2 mg PO HS for psychosis and Depakote 500 mg PO BID for mood. Discussed possible side of medications with patients.
[2016-12-28] MEDS: RisperDAL PO SCH (23:21)
--- NOTE | 2016-12-29 09:24 | Progress Note ---
Subjective - Reason for Consult Consult date: 12/29/16 Reason for consult: Psychiatry Follow-up - Chief Complaint Chief complaint: "Im doing okay today" 31 year old black female seen in the ER for psychiatric evaluation. Today patient is calm and cooperative, but has a tangential thought process. She continue to state that this hospital is "[place]." She stated that she came here for surgery, but could not tell me why she need surgery. She could not tell me who is the current President of [employer] or her . She denies SI/HI's, AVH's, depression, or sleep disturbance. Yesterday patient was irritable, but did not show that behavior this morning. Mental Status Exam - Vital signs Last Vital Signs Temp 97.5 F L 12/28/16 08:12 Pulse 77 12/28/16 21:28 Resp 17 12/28/16 21:28 BP 100/65 12/28/16 21:28 Pulse Ox 99 12/28/16 21:28 - Exam Narrative exam: MSE: Appearance: calm, cooperative Behavior: good eye contact Speech: regular rate and tone Mood: "I'm fine" Affect: euphoric Thought Process: tangential Thought Content: denies SI/HI's and AVH's Motor Activity: ambulatory Cognition: A/Ox3 Insight: poor Judgment: poor Assessment and Plan Impression: 31 year old black female seen in the ER for psychiatric evaluation. Today patient is calm and cooperative, but has a tangential thought process. She continue to state that this hospital is "[facility]." She stated that she came here for surgery, but could not tell me why she need surgery. She could not tell me who is the current President [employer] or her . Recommendation/Plan: Continue 1013 and transfer to inpatient psychiatric facility. Continue Risperdal 2 mg PO HS for psychosis and Depakote 500 mg PO BID for mood. Discussed possible side of medications with patients.
[2016-12-29] MEDS: MACROBID PO SCH ×2 (11:56→21:31)
[2016-12-29] MEDS: RisperDAL PO SCH (21:31)
[2016-12-30] MEDS: MACROBID PO SCH ×2 (10:13→22:29)
--- NOTE | 2016-12-30 10:46 | Progress Note ---
Subjective - Reason for Consult Consult date: 12/30/16 Reason for consult: Psychiatry Follow-up - Chief Complaint Chief complaint: "When I am leaving" 31 year old black female seen in the ER for psychiatric evaluation. Today patient is calm and cooperative, but has a tangential thought process. She continue to state that this hospital is "[place]." She stated that she came here for surgery to repair her "private part." Patient would laugh inappropriately during our discussion and had to be redirected. She denies SI/HI's, AVH's, depression, or sleep disturbance. Mental Status Exam - Vital signs Last Vital Signs Temp 986 F H 12/30/16 08:59 Pulse 103 H 12/30/16 08:59 Resp 18 12/30/16 08:59 BP 146/81 12/30/16 08:59 Pulse Ox 100 12/30/16 08:59 - Exam Narrative exam: MSE: Appearance: calm, cooperative Behavior: good eye contact Speech: regular rate and tone Mood: "I'm okay today" Affect: congruent to mood Thought Process: tangential Thought Content: denies SI/HI's and AVH's Motor Activity: ambulatory Cognition: A/Ox3 Insight: limited Judgment: limited Assessment and Plan Impression: 31 year old black female seen in the ER for psychiatric evaluation. Today patient is calm and cooperative, but has a tangential thought process. She continue to state that this hospital is "[facility]." She stated that she came here for surgery to repair her "private part." Patient would laugh inappropriately during our discussion and had to be redirected. Recommendation/Plan: Continue 1013 and transfer to inpatient psychiatric facility. Continue Risperdal 2 mg PO HS for psychosis and Depakote 500 mg PO BID for mood. Discussed possible metabolic side effects of medication (Risperdal ) with patients.
[2016-12-30] MEDS: RisperDAL PO SCH (22:30)
[2016-12-31] MEDS: MACROBID PO SCH ×2 (10:30→22:02)
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
[2016-12-31] MEDS: RisperDAL PO SCH (22:02)
--- NOTE | 2017-01-01 08:27 | Progress Note ---
Subjective - Reason for Consult Consult date: 01/01/17 Reason for consult: Psychiatry Follow-up - Chief Complaint Chief complaint: "Can I leave today" 31 year old black female seen in the ER for psychiatric evaluation. Today patient is calm and cooperative, but has a circumstantial thought process. She was able to tell me that she is located at a hospital in [place]. She wanted to know when she can leave, but do not want to return to [place]. She stated that people there isn't "nice." She denies SI/HI's, AVH's, depression, or sleep disturbance. Mental Status Exam - Vital signs Last Vital Signs Temp 98.6 F 12/31/16 19:45 Pulse 89 12/31/16 19:45 Resp 16 12/31/16 19:45 BP 95/48 12/31/16 19:45 Pulse Ox 98 12/31/16 19:45 - Exam Narrative exam: MSE: Appearance: calm, cooperative Behavior: good eye contact Speech: regular rate and tone Mood: "not depressed" Affect: congruent to mood Thought Process: circumstantial Thought Content: denies SI/HI's and AVH's Motor Activity: ambulatory Cognition: A/Ox3 Insight: limited Judgment: fair Assessment and Plan Impression: 31 year old black female seen in the ER for psychiatric evaluation. Today patient is calm and cooperative, but has a circumstantial thought process. She was able to tell me that she is located at a hospital in [place]. She wanted to know when she can leave, but do not want to return to [place]. She stated that people there isn't "nice." No inappropriate behavior noted from staff. Recommendation/Plan: Rescind 1013. Continue Risperdal 2 mg PO HS for psychosis and Depakote 500 mg PO BID for mood. Discussed possible metabolic side effects of medication (Risperdal) with patients. Non Licensed Operator involvement, patient will need placement.
[2017-01-01] MEDS: MACROBID PO SCH ×2 (10:52→22:46)
[2017-01-01] MEDS: COLACE PO SCH ×2 (14:05→22:46)
[2017-01-01] MEDS ORDERED: MOTRIN PO PRN (14:10)
--- NOTE | 2017-01-01 19:20 | Event Note ---
Date: 01/01/17 The patient is taken off of her 1013 by psychiatry, but she is still waiting evaluation by case management for placement. Therefore, I will not discharge the patient until case management has appropriately arranged outpatient placement for the patient. Vital Signs 12/25/16 12/26/16 12/26/16 22:39 04:43 11:00 Temperature 97.5 F L 98 F 98.4 F Pulse Rate 99 H 75 Respiratory 20 16 16 Rate Blood Pressure 115/75 Blood Pressure 106/64 110/72 [Left] O2 Sat by Pulse 100 100 97 Oximetry 12/26/16 12/26/16 12/27/16 15:17 20:50 02:27 Temperature 97.9 F Pulse Rate 91 H Respiratory 18 20 20 Rate Blood Pressure Blood Pressure 110/64 [Left] O2 Sat by Pulse 97 97 Oximetry 12/27/16 12/27/16 12/27/16 11:00 20:00 20:38 Temperature 98.4 F 98.1 F Pulse Rate 88 83 Respiratory 18 20 20 Rate Blood Pressure Blood Pressure 132/72 100/64 [Left] O2 Sat by Pulse 96 100 100 Oximetry 12/28/16 12/28/16 12/29/16 08:12 21:28 10:00 Temperature 97.5 F L 97.9 F Pulse Rate 16 L 77 70 Respiratory 16 17 16 Rate Blood Pressure Blood Pressure 104/45 100/65 101/62 [Left] O2 Sat by Pulse 100 99 98 Oximetry 12/29/16 12/29/16 12/30/16 19:48 19:50 08:59 Temperature 98.6 F 986 F H Pulse Rate 80 103 H Respiratory 20 20 18 Rate Blood Pressure Blood Pressure 102/62 146/81 [Left] O2 Sat by Pulse 99 99 100 Oximetry 12/30/16 12/31/16 12/31/16 20:00 09:39 19:45 Temperature 98.4 F 98.3 F 98.6 F Pulse Rate 94 H 96 H 89 Respiratory 20 18 16 Rate Blood Pressure Blood Pressure 139/85 106/55 95/48 [Left] O2 Sat by Pulse 99 99 98 Oximetry 01/01/17 08:27 Temperature 98 F Pulse Rate 87 Respiratory 20 Rate Blood Pressure Blood Pressure 117/67 [Left] O2 Sat by Pulse Oximetry
[2017-01-01] MEDS: RisperDAL PO SCH (22:46)
[2017-01-02] MEDS: COLACE PO SCH (10:25)
[2017-01-02 10:28] VITALS: BP 90/45
--- NOTE | 2017-01-02 13:20 | Emergency Department Report ---
Blank Doc - Documentation Documentation: Case management has evaluated the patient and arrangements have been made for outpatient placement. Patient is awaiting transport at this time.
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
== END 2017-01-02 13:20 | disposition home or self-care (01) ==
LOC: EEVIPCON 21:45 → ED 21:45
DX: F39 Unspecified mood [affective] disorder (principal); F31.9 Bipolar disorder, unspecified; F20.9 Schizophrenia, unspecified
CPT/HCPCS: 36415; 70450; 80048; 80074; 80164; 80307; 81001; 81025; 85025; 96372; 99285; G0480; J0696; 80320; 82962

== ENCOUNTER 2017-02-15 20:42 | Emergency (ER) | payer MEDICAID ==
[2017-02-15 21:58] LABS: Anion Gap 18 mmol/L; BUN/Creatinine Ratio 11.42; Blood Urea Nitrogen 8 mg/dL (7-17); Carbon Dioxide 25 mmol/L (22-30); Chloride 97.7 mmol/L (98-107); Glucose 113 mg/dL (65-100); Potassium 4.1 mmol/L (3.6-5.0); Sodium 137 mmol/L (137-145)
[2017-02-15 22:10] LABS: Basophils % (Auto) 0.3 % (0.0-1.8); Eosinophils % (Auto) 0.2 % (0.0-4.3); Hematocrit 35.2 % (30.3-42.9); Hemoglobin 11.5 gm/dl (10.1-14.3); Mean Corpuscular HGB Conc 33 % (30-34); Mean Corpuscular Hemoglobin 28 pg (28-32); Mean Corpuscular Volume 85 fl (79-97); Platelet Count 228 K/mm3 (140-440); Red Blood Count 4.12 M/mm3 (3.65-5.03); Red Cell Distribution Width 15.2 % (13.2-15.2); White Blood Count 8.5 K/mm3 (4.5-11.0)
[2017-02-15] MEDS ORDERED: ATIVAN IM PRN (22:46)
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
[2017-02-15 23:24] LABS: Valproate 2.9 ug/mL (50-100)
[2017-02-15 23:25] LABS: Salicylate < 0.3 mg/dL (2.8-20.0)
[2017-02-16 01:05] LABS: Urine Drugs of Abuse Note Disclamer
[2017-02-16 01:15] LABS: Bacteria,Urine 1+ /HPF (Negative); Bilirubin,Urine NEG (Negative); Blood,Urine SM (Negative); Ketones,Urine NEG (Negative); Leukocyte Esterase,Urine LG (Negative); Mucus,Urine 1+ /HPF; Nitrite,Urine NEG (Negative); Protein,Urine <15 mg/dL mg/dL (Negative); Urobilinogen,Urine < 2.0 mg/dL (<2.0)
[2017-02-16] MEDS: MACROBID PO SCH ×3 (06:00→22:04)
--- NOTE | 2017-02-16 12:50 | Consultation ---
History of Present Illness - Reason for Consult Consult date: 02/16/17 Reason for consult: psychosis and agitation Medications and Allergies Allergies Allergy/AdvReac Type Severity Reaction Status Date / Time No Known Allergies Allergy Verified 12/06/16 16:18 Home Medications Medication Instructions Recorded Confirmed Last Taken Type Divalproex Dr 1,000 mg PO HS 12/25/16 12/26/16 Unknown History Divalproex ER 500 mg PO DAILY 12/25/16 12/26/16 Unknown History FLUoxetine 10 mg PO DAILY 12/25/16 12/26/16 Unknown History Paliperidone ER 6 mg PO DAILY 12/25/16 12/26/16 Unknown History Active Meds: Active Medications Lorazepam (Ativan) 2 mg IM Q4HR PRN PRN Reason: Agitation Nitrofurantoin Macrocrystals (Macrobid) 100 mg PO BID CARLOS Stop: 02/22/17 10:01 Last Admin: 02/16/17 10:04 Dose: Not Given Mental Status Exam - Vital signs Last Vital Signs Temp 98.1 F 02/16/17 09:17 Pulse 100 H 02/16/17 09:30 Resp 17 02/16/17 09:30 BP 126/77 02/16/17 09:30 Pulse Ox 98 02/16/17 09:30 Results Result Diagrams: 02/15/17 21:17 02/15/17 21:17 Abnormal lab results 02/15/17 02/15/17 02/15/17 Range/Units 21:17 21:17 21:17 Kenton % (Auto) 14.1 H (0.0-7.3) % Kenton # 1.2 H (0.0-0.8) K/mm3 Chloride 97.7 L (98-107) mmol/L Glucose 113 H (65-100) mg/dL Urine WBC (Auto) (0.0-6.0) /HPF U Epithel Cells (Auto) (0-13.0) /HPF Salicylates < 0.3 L (2.8-20.0) mg/dL Valproic Acid 2.9 L (50-100) ug/mL 02/15/17 Range/Units Unknown Kenton % (Auto) (0.0-7.3) % Kenton # (0.0-0.8) K/mm3 Chloride (98-107) mmol/L Glucose (65-100) mg/dL Urine WBC (Auto) 78.0 H (0.0-6.0) /HPF U Epithel Cells (Auto) 17.0 H (0-13.0) /HPF Salicylates (2.8-20.0) mg/dL Valproic Acid (50-100) ug/mL All other labs normal. Assessment and Plan Assessment and plan: CHIEF COMPLAINT IN PATIENTS WORDS: HISTORY OF PRESENT ILLNESS REQUIRING ADMISSION TO INPATIENT LEVEL OF CARE: (Describe the onset of Illness, Intensity of Symptoms, and Circumstances Leading to Admission) This is a 31 year-old domiciled female who reports a formal PPH schizophrenia now presenting after patient's been having increasingly bizarre behaviors and agitation the past few days. nursing home reports patient has been having disorganized thought process and agitation. On examination, she was nonverbal and noncommunicative. On review of clinical record, patient was reportedly having disorganized and unintelligible speech. PSYCHIATRIC REVIEW OF SYSTEMS: Substance: none noted Depression: Some sleep difficulties, and mood lability Hannah: Labile moods, flight of ideas and impulsive behaviors some grandiosity noted Psychosis: Disorganized and paranoid Anxiety/ OCD/ PTSD: To assess Suicidality: denies SI Other Self-Injurious Behavior: none currently, no SIB noted recently Violent/ Aggressive Behavior: [facility] aggression [facility] the [facility] CURRENT MEDICATIONS: ( Psychiatric and Non-psychiatric ) Depakote 1000 milligrams at bedtime Depakote 500 every morning fluoxetine 10 mg every morning paliperidone 6 mg daily ALLERGIES: NKDA PAST PSYCHIATRIC HISTORY: ( Prior Treatment, Precipitating Factors, Diagnosis, and Course of Treatment ) Inpatient: Multiple inpatient hospitalizations Outpatient: [facility] Prior Suicide Attempts: Unknown Prior Self-Injurious Behaviors: Unknown PAST PSYCHIATRIC MEDICATION TRIALS: Unknown MEDICAL HISTORY: (Chronic and Acute Illnesses, Current Medical Treatment, Recent Hospitalizations) Denies Detoxification / Withdrawal: none noted MENTAL STATUS EXAM: General Appearance: Dressed in hospital gown Sensorium/Consciousness: alert and responding to external stimuli Eye Contact: limited Attitude / Behavior: uncooperative Psychomotor & Musculoskeletal Activity: PMR Mood: Unable to assess Affect: Flat Speech / Language: Mute Thought Processes: Disorganized Thought Content: no SI, no HI Perception: Likely responding to internal stimuli, however patient did not report Orientation: person Judgment What would you do if you smelled smoke in a crowded movie theater?: poor/impulsive Insight: poor Intelligence Vocabulary, general fund of knowledge, educational level: Below Average Capacity of ADLs: Independent STRENGTHS: PSYCHOSOCIAL AND ENVIRONMENTAL STRESSORS: ADMITTING DIAGNOSES Psychiatric: Schizophrenia Evidence for the following: Medical: n/a INITIAL PLAN OF CARE AND TREATMENT GOALS: Start Depakote Start Prozac Start Invega Refer for inpatient psychiatric care
[2017-02-16] MEDS: RisperDAL PO SCH (22:04)
[2017-02-17] MEDS: PROzac PO SCH (09:47)
[2017-02-17] MEDS: MACROBID PO SCH ×2 (09:47→22:06)
--- NOTE | 2017-02-17 12:41 | Progress Note ---
Subjective - Reason for Consult Reason for consult: disorganized thought process Mental Status Exam - Vital signs Last Vital Signs Temp 98.4 F 02/17/17 10:31 Pulse 82 02/17/17 10:31 Resp 20 02/17/17 10:31 BP 122/72 02/17/17 10:31 Pulse Ox 99 02/17/17 10:31 Assessment and Plan Examination, patient is still fairly irritable and disorganized. Patient is mostly incoherent. Patient was able to report that she takes Depakote and risperidone, which has been restarted. Still awaiting placement in inpatient psychiatric facility. MENTAL STATUS EXAM: General Appearance: Dressed in hospital gown Sensorium/Consciousness: alert and responding to external stimuli Eye Contact: limited Attitude / Behavior: uncooperative Psychomotor & Musculoskeletal Activity: PMR Mood: Unable to assess Affect: Flat Speech / Language: Mute Thought Processes: Disorganized Thought Content: no SI, no HI Perception: Likely responding to internal stimuli, however patient did not report Orientation: person Judgment What would you do if you smelled smoke in a crowded movie theater?: poor/impulsive Insight: poor Intelligence Vocabulary, general fund of knowledge, educational level: Below Average Capacity of ADLs: Independent INITIAL PLAN OF CARE AND TREATMENT GOALS: Continue Depakote ER 500 every morning and 1000 daily at bedtime Continue risperidone 3 mg at bedtime Continue Prozac 10 mg daily Referred inpatient psychiatric hospital
[2017-02-17] MEDS: RisperDAL PO SCH (22:07)
[2017-02-18] MEDS: PROzac PO SCH (10:06)
[2017-02-18] MEDS: MACROBID PO SCH (10:06)
--- NOTE | 2017-02-18 15:06 | Progress Note ---
Subjective - Reason for Consult Consult date: 02/18/17 Reason for consult: psychiatric follow up Mental Status Exam - Vital signs Last Vital Signs Temp 98.6 F 02/18/17 07:55 Pulse 101 H 02/18/17 07:55 Resp 18 02/18/17 07:55 BP 122/70 02/18/17 07:55 Pulse Ox 100 02/18/17 07:55 Assessment and Plan Examination, patient is still fairly irritable and disorganized. Patient is mostly incoherent. She is taking medications and denies side effects. Still awaiting placement in inpatient psychiatric facility. MENTAL STATUS EXAM: General Appearance: Dressed in hospital gown Sensorium/Consciousness: alert and responding to external stimuli Eye Contact: limited Attitude / Behavior: uncooperative Psychomotor & Musculoskeletal Activity: PMR Mood: Unable to assess Affect: Flat Speech / Language: loud Thought Processes: Disorganized Thought Content: no SI, no HI Perception: Likely responding to internal stimuli, however patient did not report Orientation: person Judgment What would you do if you smelled smoke in a crowded movie theater?: poor/impulsive Insight: poor Intelligence Vocabulary, general fund of knowledge, educational level: Below Average Capacity of ADLs: Independent INITIAL PLAN OF CARE AND TREATMENT GOALS: Continue Depakote ER 500 every morning and 1000 daily at bedtime Continue risperidone 3 mg at bedtime Continue Prozac 10 mg daily Referred inpatient psychiatric hospital
[2017-02-19] MEDS: RisperDAL PO SCH ×2 (02:27→22:58)
[2017-02-19] MEDS: MACROBID PO SCH ×3 (02:27→22:58)
[2017-02-19] MEDS: PROzac PO SCH (10:55)
--- NOTE | 2017-02-19 12:42 | Progress Note ---
Subjective - Reason for Consult Reason for consult: disorganized Mental Status Exam - Vital signs Last Vital Signs Temp 98.5 F 02/19/17 10:00 Pulse 91 H 02/19/17 10:00 Resp 18 02/19/17 10:00 BP 121/80 02/19/17 10:00 Pulse Ox 98 02/19/17 10:00 Assessment and Plan On examination, patient remains somewhat disorganized and labile. Per discussion with the referral staff, patient has been denied to several inpatient hospitalizations due to daily. Consequently, her disorganization and psychosis will be addressed while she is in the ER. MENTAL STATUS EXAM: General Appearance: Dressed in hospital gown Sensorium/Consciousness: alert and responding to external stimuli Eye Contact: limited Attitude / Behavior: uncooperative Psychomotor & Musculoskeletal Activity: PMR Mood: Unable to assess Affect: Flat Speech / Language: Mute Thought Processes: Disorganized Thought Content: no SI, no HI Perception: Likely responding to internal stimuli, however patient did not report Orientation: person Judgment What would you do if you smelled smoke in a crowded movie theater?: poor/impulsive Insight: poor Intelligence Vocabulary, general fund of knowledge, educational level: Below Average Capacity of ADLs: Independent INITIAL PLAN OF CARE AND TREATMENT GOALS: Continue Depakote ER 500 every morning and 1000 daily at bedtime Increase to risperidone 4 mg at bedtime Continue Prozac 10 mg daily Referred inpatient psychiatric hospital
[2017-02-20] MEDS: PROzac PO SCH (10:45)
[2017-02-20] MEDS: MACROBID PO SCH ×2 (10:45→22:02)
--- NOTE | 2017-02-20 15:06 | Progress Note ---
Subjective - Reason for Consult Consult date: 02/20/17 Reason for consult: follow up Mental Status Exam - Vital signs Last Vital Signs Temp 98.4 F 02/19/17 21:30 Pulse 67 02/19/17 21:30 Resp 20 02/20/17 06:05 BP 112/77 02/19/17 21:30 Pulse Ox 99 02/20/17 06:05 Assessment and Plan On examination, patient remains disorganized and labile but calmer. Per discussion with the referral staff, patient has been denied to several inpatient hospitalizations due to daily. Consequently, her disorganization and psychosis will be addressed while she is in the ER. MENTAL STATUS EXAM: General Appearance: Dressed in hospital gown Sensorium/Consciousness: alert and responding to external stimuli Eye Contact: limited Attitude / Behavior: uncooperative Psychomotor & Musculoskeletal Activity: PMR Mood: Unable to assess Affect: Flat Speech / Language: Mute Thought Processes: Disorganized Thought Content: no SI, no HI Perception: Likely responding to internal stimuli, however patient did not report Orientation: person, place Judgment poor/impulsive Insight: poor Intelligence Vocabulary, general fund of knowledge, educational level: Below Average Capacity of ADLs: Independent INITIAL PLAN OF CARE AND TREATMENT GOALS: Continue Depakote ER 500 every morning and 1000 daily at bedtime Continue risperidone 4 mg at bedtime Continue Prozac 10 mg daily Referred for inpatient psychiatric hospitalization
[2017-02-20] MEDS: RisperDAL PO SCH (22:01)
[2017-02-21] MEDS ORDERED: COGENTIN PO SCH (10:00)
--- NOTE | 2017-02-21 10:04 | Progress Note ---
Subjective - Reason for Consult Reason for consult: assessment and management of disorganized behaviors Mental Status Exam - Vital signs Last Vital Signs Temp 98.4 F 02/21/17 07:48 Pulse 90 02/21/17 07:48 Resp 20 02/21/17 07:48 BP 123/71 02/21/17 07:48 Pulse Ox 100 02/21/17 07:48 Assessment and Plan On examination, patient remains somewhat disorganized and labile. Current presentation may be close to her baseline. She has not been agitated while in the hospital. Furthermore, she is attentive to her ADLs with fair hygeine while in the ER. She mentions that she would like to return back to her foster parents home. At the current time there is no information that I could gather about where she lives. MENTAL STATUS EXAM: General Appearance: Dressed in hospital gown Sensorium/Consciousness: alert and responding to external stimuli Eye Contact: limited Attitude / Behavior: uncooperative Psychomotor & Musculoskeletal Activity: PMR Mood: Unable to assess Affect: Flat Speech / Language: Mute Thought Processes: Disorganized Thought Content: no SI, no HI Perception: Likely responding to internal stimuli, however patient did not report Orientation: person Judgment What would you do if you smelled smoke in a crowded movie theater?: poor/impulsive Insight: poor Intelligence Vocabulary, general fund of knowledge, educational level: Below Average Capacity of ADLs: Independent INITIAL PLAN OF CARE AND TREATMENT GOALS: Continue Depakote ER 500 every morning and 1000 daily at bedtime Increase to risperidone 5 mg at bedtime Valorpric acid level, LFTs, Amylase/Lipase ordered Continue Prozac 10 mg daily pony worker consult to help with disposition Also referred for inpatient psychiatric care concomitantly, if disposition is unclear and if the current presentation is indeed not her baseline level of functioning
[2017-02-21 11:02] LABS: Alanine Aminotransferase 6 units/L (7-56); Albumin 3.6 g/dL (3.9-5); Albumin/Globulin Ratio 0.9 %; Alkaline Phosphatase 63 units/L (35-129); Amylase 77 units/L (27-131); Lipase 44 units/L (13-60); Total Protein 7.4 g/dL (6.3-8.2)
[2017-02-21 11:03] LABS: Bilirubin,Direct < 0.2 mg/dL (0-0.2)
[2017-02-21] MEDS: MACROBID PO SCH ×2 (11:40→22:06)
[2017-02-21] MEDS: PROzac PO SCH (11:40)
[2017-02-21] MEDS: RisperDAL PO SCH (22:07)
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
[2017-02-22] MEDS: PROzac PO SCH (10:44)
[2017-02-22] MEDS: MACROBID PO SCH (10:44)
[2017-02-23] MEDS: RisperDAL PO SCH (00:27)
[2017-02-23] MEDS ORDERED: MACROBID PO ONE (08:05)
[2017-02-23] MEDS: PROzac PO SCH (09:51)
[2017-02-23 10:12] VITALS: BP 124/80
--- NOTE | 2017-02-23 12:54 | Progress Note ---
Subjective - Reason for Consult Consult date: 02/23/17 Reason for consult: Psychiatry Follow-up - Chief Complaint Chief complaint: "When I will be leaving" This is a 31-year-old AA female. I am familiar with this patient. Today patient is calm and cooperative during the assessment. She stated that she slept well and look forward to being released. Per the staff, patient was appropriate overnight. She denies SI/HI's and AVH's. Mental Status Exam - Vital signs Last Vital Signs Temp 98.7 F 02/23/17 10:00 Pulse 81 02/23/17 10:00 Resp 16 02/23/17 10:15 BP 124/80 02/23/17 10:00 Pulse Ox 100 02/23/17 10:15 - Exam Narrative exam: MSE: Appearance: calm, cooperative Behavior: good eye contact Speech: regular rate and tone Mood: "fine" Affect: congruent to mood Thought Process: circumstantial Thought Content: denies SI/HI's and AVH's Motor Activity: ambulatory Cognition: A/Ox 3 Insight: limited Judgment: limited Assessment and Plan Impression: Patient appropriate over night. She denies SI/HI's and AVH's. Recommendation/Plan: Pending transport back to her residence [place] today.
== END 2017-02-23 14:30 ==
LOC: EEVIPCON 20:42 → ED 20:42
DX: F39 Unspecified mood [affective] disorder (principal); F20.9 Schizophrenia, unspecified; F31.9 Bipolar disorder, unspecified
CPT/HCPCS: 36415; 80048; 80074; 80164; 80307; 81001; 82150; 82550; 83690; 84703; 85025; 87086; 96372; 99284; G0480; J2060; 80320

== ENCOUNTER 2017-04-23 11:47 | Emergency (ER) | payer MEDICAID ==
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
[2017-04-23 12:43] LABS: Basophils % (Auto) 0.3 % (0.0-1.8); Eosinophils % (Auto) 0.4 % (0.0-4.3); Hemoglobin 11.2 gm/dl (10.1-14.3); Mean Corpuscular HGB Conc 33 % (30-34); Mean Corpuscular Hemoglobin 28 pg (28-32); Mean Corpuscular Volume 85 fl (79-97); Platelet Count 192 K/mm3 (140-440); Red Blood Count 4.01 M/mm3 (3.65-5.03); White Blood Count 5.7 K/mm3 (4.5-11.0)
[2017-04-23 12:49] LABS: Urine Drugs of Abuse Note Disclamer
[2017-04-23 12:54] LABS: INR 1.04 (0.87-1.13); Partial Thromboplastin Time 29.2 Sec. (24.2-36.6)
[2017-04-23 13:04] LABS: Bacteria,Urine 1+ /HPF (Negative); Bilirubin,Urine NEG (Negative); Blood,Urine LG (Negative); Ketones,Urine TR mg/dL (Negative); Leukocyte Esterase,Urine TR (Negative); Mucus,Urine FEW /HPF; Nitrite,Urine NEG (Negative); Urobilinogen,Urine < 2.0 mg/dL (<2.0)
[2017-04-23 13:05] LABS: RBC,Urine > 182.0 /HPF (0.0-6.0)
[2017-04-23 13:10] LABS: Albumin 3.1 g/dL (3.9-5); Alkaline Phosphatase 46 units/L (35-129); Anion Gap 13 mmol/L; BUN/Creatinine Ratio 18.57; Bilirubin,Total < 0.20 mg/dL (0.1-1.2); Blood Urea Nitrogen 13 mg/dL (7-17); Calcium 8.4 mg/dL (8.4-10.2); Carbon Dioxide 28 mmol/L (22-30); Chloride 106.8 mmol/L (98-107); Creatine Kinase 54 units/L (30-135); Glucose 123 mg/dL (65-100); Potassium 4.3 mmol/L (3.6-5.0); Sodium 143 mmol/L (137-145); Total Protein 6.2 g/dL (6.3-8.2)
[2017-04-23 13:12] LABS: Alanine Aminotransferase 5 units/L (7-56)
[2017-04-23] MEDS ORDERED: NACL ONE (13:19)
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
[2017-04-23 16:17] VITALS: BP 118/71
--- NOTE | 2017-04-23 16:23 | XRay Report ---
Bilateral femurs. History: Bilateral thigh pain. Findings: There are no fractures or other acute findings. Bone mineralization is normal. No significant soft tissue abnormalities are seen. Impression: Normal study.
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
== END 2017-04-23 21:50 | disposition home or self-care (01) ==
LOC: ED 11:47
DX: S00.83XA Contusion of other part of head, initial encounter (principal); F20.9 Schizophrenia, unspecified; F31.9 Bipolar disorder, unspecified; Y08.89XA Assault by other specified means, initial encounter; Y93.89 Activity, other specified; Y99.9 Unspecified external cause status; Y92.89 Other specified places as the place of occurrence of the external cause
CPT/HCPCS: 36415; 70450; 70486; 72125; 72170; 73552; 74177; 80053; 80307; 81001; 82140; 82550; 82962; 84484; 84703; 85025; 85610; 85730; 87086; 93005; 93010; 99285; G0480; Q9967; 80320

== ENCOUNTER 2017-05-03 17:39 | Emergency (ER) | payer MEDICAID ==
[2017-05-03 20:19] LABS: Basophils % (Auto) 0.6 % (0.0-1.8); Eosinophils % (Auto) 0.4 % (0.0-4.3); Hematocrit 34.5 % (30.3-42.9); Mean Corpuscular HGB Conc 32 % (30-34); Mean Corpuscular Hemoglobin 28 pg (28-32); Mean Corpuscular Volume 86 fl (79-97); Platelet Count 263 K/mm3 (140-440); Red Blood Count 3.99 M/mm3 (3.65-5.03); Red Cell Distribution Width 17.3 % (13.2-15.2); White Blood Count 7.5 K/mm3 (4.5-11.0)
[2017-05-03 20:28] LABS: Alanine Aminotransferase 7 units/L (7-56); Albumin 3.5 g/dL (3.9-5); Alkaline Phosphatase 63 units/L (35-129); Anion Gap 15 mmol/L; BUN/Creatinine Ratio 16.66; Bilirubin,Total < 0.20 mg/dL (0.1-1.2); Blood Urea Nitrogen 10 mg/dL (7-17); Calcium 9.1 mg/dL (8.4-10.2); Carbon Dioxide 28 mmol/L (22-30); Chloride 101.7 mmol/L (98-107); Glucose 127 mg/dL (65-100); Potassium 4.1 mmol/L (3.6-5.0); Sodium 141 mmol/L (137-145); Total Protein 7.1 g/dL (6.3-8.2)
[2017-05-03 22:07] LABS: Urine Drugs of Abuse Note Disclamer
[2017-05-03 22:26] LABS: Bilirubin,Urine NEG (Negative); Blood,Urine NEG (Negative); Ketones,Urine NEG (Negative); Leukocyte Esterase,Urine SM (Negative); Mucus,Urine 2+ /HPF; Nitrite,Urine NEG (Negative); Protein,Urine <15 mg/dL mg/dL (Negative)
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
[2017-05-04] MEDS: RisperDAL PO SCH (22:27)
[2017-05-05 09:34] VITALS: BP 126/77
[2017-05-05] MEDS: RisperDAL PO SCH (10:24)
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
--- NOTE | 2017-05-05 18:32 | Event Note ---
Date: 05/05/17 Evaluated Zeinab Saldaña patient's 1013 has been rescinded by psychiatry. Discussed with patient she has no suicidal or homicidal ideation. She is not hearing any voices at this time. I will send patient home with Depakote thousand milligrams by mouth at bedtime and 500 mg every morning for mood and Risperdal 2 mg by mouth twice a day for mood patient while be seen by [facility] counseling for outpatient psych services.
== END 2017-05-05 20:32 ==
LOC: EEVIPCON 17:39 → ED 17:39
DX: R22.0 Localized swelling, mass and lump, head (principal); R51 Headache; F22 Delusional disorders; F20.9 Schizophrenia, unspecified; F31.9 Bipolar disorder, unspecified; Y08.89XA Assault by other specified means, initial encounter; Y93.9 Activity, unspecified; Y92.9 Unspecified place or not applicable; Y99.9 Unspecified external cause status
CPT/HCPCS: 36415; 80053; 80164; 80307; 81001; 81025; 85025; 99285; G0480; 80320